=== PATIENT | male | born 1935 | race Caucasian/White ===

== ENCOUNTER 2019-09-01 09:44 | Observation (INO) | payer OTHER, MEDICARE ==
[~2019-09-01] VITALS: Ht 167.6 cm; Wt 87.5 kg
[~2019-09-01 09:44] MED LIST: AMLODIPINE BES2.5 MG PO; ATOR10 PO; Aspir 8181 MG PO; CARV3.125 PO; ERGO400 PO; HYDRA25 PO; ISODIN10 PO; NIFE30ER PO; PLAVIX75 MG PO; PRAZ1
[2019-09-01 10:07] LABS: BASOPHILS ABSOLUTE AUTO 0.05 K/mm3 (0.00-0.23); BASOPHILS PERCENT AUTO 1 % (0-2); EOSINOPHILS ABSOLUTE AUTO 0.34 K/mm3 (0.00-0.68); EOSINOPHILS PERCENT AUTO 5 % (0-6); Hematocrit 41.4 % (37.0-53.0); Hemoglobin 13.4 g/dL (13.5-17.5); IMMATURE GRAN ABSOLUTE AUTO 0.03 K/mm3 (0.00-0.10); IMMATURE GRAN PERCENT AUTO 0 % (0-1); LYMPHOCYTES ABSOLUTE AUTO 1.07 K/mm3 (0.84-5.20); LYMPHOCYTES PERCENT AUTO 15 % (21-46); MONOCYTES ABSOLUTE AUTO 0.67 K/mm3 (0.16-1.47); MONOCYTES PERCENT AUTO 10 % (4-13); Mean Corpuscular HGB 31.8 pg (26.0-34.0); Mean Corpuscular HGB Conc 32.4 g/dL (31.5-36.5); Mean Corpuscular Volume 98 fL (80-100); Mean Platelet Volume 10.2 fL (9.1-12.4); NEUTROPHILS ABSOLUTE AUTO 4.83 K/mm3 (1.96-9.15); NEUTROPHILS PERCENT AUTO 69 % (41-73); Platelet Count 149 K/mm3 (150-400); RDW Coefficient Variation 13.5 % (11.7-14.2); RDW Standard Deviation 48.3 fL (35.1-46.3); Red Blood Cell Count 4.21 M/mm3 (4.30-5.90); White Blood Cell Count 6.99 K/mm3 (4.00-11.30)
[2019-09-01 10:30] LABS: Bilirubin, Total 0.5 mg/dL (0.1-1.0); Bun/Creatinine Ratio 11.6 (12.0-20.0); Calcium, Blood 9.1 mg/dL (8.5-10.1); Globulin, Blood 3.1 g/dL (2.2-4.0); Potassium, Blood 4.2 mmol/L (3.5-5.5); Total Protein, Blood 6.1 g/dL (6.4-8.2); Troponin I 0.09 ng/mL (0.000-0.040)
--- NOTE | 2019-09-01 11:52 | NUR ---
Spoke with Dr Garibay and discussed case. Pt will need a placemaker placed and Pt is agreeable. Pt has reported that he may not want dialysis. Pt may benefit from conversation regarding goals of care and advanced care planning. Pt is A&O and is resting on gurney. Listened as Pt reports hope to be discharged from the hospital tomorow. Pt reports his is currently at [facility] and she will be discharge home with hospice tomorrow. Difficult to have continued conversations due to Pt's continued black outs. Pt reports his son Pool lives with him and his and will be home for to come home tomorrow. Pt reports Pool is supportive of Pt and 's needs. [employer] enters rooms and discusses plan including pacemaker placement. Pt is agreeable with plan. [employer] would like Pt to remain NPO for procedure. Pt continues with balck out symptoms. Pt requests for this RN to call son and update him. Instructed Pt this RN will F/U with hime after procedure. Pt is agreeable. Spoke with Pt's ED nurse and relayed cardiologists request for Pt to remain NPO. Called and spoke with Pt's son Pool. Updated Pool on plan. Pool reports understanding. Listened as Pool reports feeling overwhelmed due to Pt being in the hospital and his mom (Pt's ) coming home with hospice tomorrow. Fab Ballesteros concerns. Pool expresses appreciation of call. Instructed Pool to call with any questions or concerns. Pool requests to be contacted at [phone]. Alternate number is [phone]. Palliative Care will F/U with Pt after procedure to help determine Pt's goals and advanced care planning.
[2019-09-02 04:30] LABS: Anion Gap 8 mmol/L (6-16); Blood Urea Nitrogen 58 mg/dL (8-24); Bun/Creatinine Ratio 12.3 (12.0-20.0); CO2, Blood 19 mmol/L (21-32); Calcium, Blood 8.6 mg/dL (8.5-10.1); Chloride, Blood 115 mmol/L (98-108); Glomerular Filtration Rate 13 (60-); Glucose, Blood 79 mg/dL (70-99); Potassium, Blood 4.5 mmol/L (3.5-5.5); Sodium, Blood 142 mmol/L (136-145)
[2019-09-02 04:32] LABS: Vancomycin, Random 9.5 ug/mL
--- NOTE | 2019-09-02 06:27 | NUR ---
SHIFT SUMMARY PT RESTING IN ROOM COMFORTABLY AT THIS TIME. NO ACUTE CHANGES IN STATUS T/O NIGHT. PRE REPORTED SOME PAIN TO PACEMAKER SITE, PT WAS MEDICATED PER EMAR. RESP EVEN UNLABORED ON RA W/ SATS >92%. PT DENIED OTHER NEEDS T/O NIGHT. ABLE TO AMBULATE TO RR W/ SBA. PT DENIED OTHER NEEDS. CALL LIGHT IN REACH.
--- NOTE | 2019-09-02 09:08 | NUR ---
ASSUMED CARE AT 0700, REPORT FROM BRANDO FARIA. RESTING IN HIGH FOWLERS IN BED. SLING TO LEFT ARM AND DRESSING ON PACEMAKER SITE CLEAN DRY AND INTACT. [facility] TO ROOM FOR PACEMAKER INTERROGATION. A/A/0X4 IN NO DISTRESS. WILL CONTINUE TO MONITOR.
[2019-09-02] MEDS ORDERED: SENN187 PO (10:22)
[2019-09-02] MEDS ORDERED: CARV6.25 PO (10:22)
--- NOTE | 2019-09-02 11:42 | NUR ---
DISCHARGE INSTRUCTIONS GIVEN WITH CLEAR UNDERSTANDING. REVIEWED NEED TO WEAR SLING UNTIL THURSDAY PER ORDERS. PT STATES SLING STRAP WILL DISLODGE HIS VERTABAE BUT AGREES TO WEAR. FOLLOW UP APPOINTMENTS GIVEN TO PT. WOUND CARE GIVEN FOR PACEMAKER INSCISION. PACEMAKER POST OP INSTRUCTIONS GIVEN.
== END 2019-09-02 11:08 | disposition home or self-care (01) ==
LOC: ER 09:44 → PCU 09:45
PROVIDERS: Emergency Medicine; Hospitalist; ADMIT Internal Medicine
DX: I49.5 Sick sinus syndrome (principal); I12.0 Hypertensive chronic kidney disease with stage 5 chronic kidney disease or end stage renal disease; N18.5 Chronic kidney disease, stage 5; Z90.5 Acquired absence of kidney; I48.0 Paroxysmal atrial fibrillation; Z88.0 Allergy status to penicillin; Z88.1 Allergy status to other antibiotic agents; Z88.2 Allergy status to sulfonamides; Z91.040 Latex allergy status; Z91.018 Allergy to other foods; Z79.899 Other long term (current) drug therapy; Z79.02 Long term (current) use of antithrombotics/antiplatelets; Z85.528 Personal history of other malignant neoplasm of kidney; Z87.891 Personal history of nicotine dependence
CPT/HCPCS: 33208; 36415; 71045; 71046; 72040; 76937; 80048; 80053; 80202; 84484; 85025; 93005; 93010; 99152; 99153; 99285-25; A9270-GY; C1785; C1894; C1898; J0461; J0690; J1644; J2250; J3010; J3370; J7030; J7040

== ENCOUNTER 2020-02-02 07:18 | Day surgery (SDC) | payer OTHER, MEDICARE ==
[~2020-02-02] VITALS: Ht 170.2 cm; Wt 84.0 kg
[~2020-02-02 07:18] MED LIST changes: +CARV6.25 PO; +FOLI1 PO; +SENN187 PO; +SODBIC650 PO; +VITAMIN D31000 UNI1 PO
--- NOTE | 2020-02-02 10:36 | NUR ---
PT SON HERE NOW, PT DRESSED, IV DC'D INTACT, PERMACATH SITE STABLE, DIAYLSIS T REMOVE SUTURES, PT DC'D BY WC WITH SON DRIVING PT HOME. PT HAD NO SEDATION, VSS
== END 2020-02-02 15:45 | disposition home or self-care (01) ==
LOC: MHTC 07:18
DX: I12.0 Hypertensive chronic kidney disease with stage 5 chronic kidney disease or end stage renal disease (principal); N18.6 End stage renal disease; I71.4 Abdominal aortic aneurysm, without rupture; I48.91 Unspecified atrial fibrillation; Z90.5 Acquired absence of kidney; Z88.6 Allergy status to analgesic agent; Z88.2 Allergy status to sulfonamides; Z88.1 Allergy status to other antibiotic agents; Z88.8 Allergy status to other drugs, medicaments and biological substances; Z85.528 Personal history of other malignant neoplasm of kidney; Z79.899 Other long term (current) drug therapy
CPT/HCPCS: 36558; 77001; C1750; C1769; C1894; J1644; J1720; J2250; J3010; J7030; J7040

== ENCOUNTER 2020-02-04 15:08 | Inpatient (IN) | payer OTHER, MEDICARE ==
[~2020-02-04] VITALS: Ht 165.1 cm; Wt 81.5 kg
[2020-02-04 16:20] LABS: BASOPHILS ABSOLUTE AUTO 0.06 K/mm3 (0.00-0.23); BASOPHILS PERCENT AUTO 1 % (0-2); EOSINOPHILS ABSOLUTE AUTO 0.48 K/mm3 (0.00-0.68); EOSINOPHILS PERCENT AUTO 6 % (0-6); Hematocrit 36.1 % (37.0-53.0); Hemoglobin 11.3 g/dL (13.5-17.5); IMMATURE GRAN ABSOLUTE AUTO 0.09 K/mm3 (0.00-0.10); IMMATURE GRAN PERCENT AUTO 1 % (0-1); LYMPHOCYTES ABSOLUTE AUTO 1.25 K/mm3 (0.84-5.20); LYMPHOCYTES PERCENT AUTO 15 % (21-46); MONOCYTES ABSOLUTE AUTO 0.75 K/mm3 (0.16-1.47); MONOCYTES PERCENT AUTO 9 % (4-13); Mean Corpuscular HGB 32.5 pg (26.0-34.0); Mean Corpuscular HGB Conc 31.3 g/dL (31.5-36.5); Mean Corpuscular Volume 104 fL (80-100); Mean Platelet Volume 10.3 fL (9.1-12.4); NEUTROPHILS ABSOLUTE AUTO 5.96 K/mm3 (1.96-9.15); NEUTROPHILS PERCENT AUTO 69 % (41-73); Platelet Count 157 K/mm3 (150-400); RDW Coefficient Variation 14.9 % (11.7-14.2); RDW Standard Deviation 56.9 fL (35.1-46.3); Red Blood Cell Count 3.48 M/mm3 (4.30-5.90); White Blood Cell Count 8.59 K/mm3 (4.00-11.30)
[2020-02-04 16:31] LABS: Albumin, Blood 3.2 g/dL (3.4-5.0); Albumin/Globulin Ratio 0.9 (0.8-1.8); Bilirubin, Total 0.4 mg/dL (0.1-1.0); Bun/Creatinine Ratio 7.6 (12.0-20.0); Calcium, Blood 8.8 mg/dL (8.5-10.1); Creatinine, Blood 6.02 mg/dL (0.60-1.20); Globulin, Blood 3.4 g/dL (2.2-4.0); Potassium, Blood 4.9 mmol/L (3.5-5.5); Total Protein, Blood 6.6 g/dL (6.4-8.2)
--- NOTE | 2020-02-04 19:52 | NUR ---
PT ADMITTED TO ROOM 339 PER CART FROM ER; REPORT RECEIVED FROM BRANDO DEJESUS VIA ER; RIGHT UPPER CHEST PERMATCATH SITE OPEN TO AIR.
--- NOTE | 2020-02-05 03:50 | NUR ---
SHIFT SUMMARY: 84 Y/O MALE RESTED COMFORTABLY ALL SHIFT; PT AWAITING DIALYSIS THIS AM; PTS RIGHT UPPER CHEST PORTACATH SITE WELL APPROXIMATED AND INTACT (OPEN TO AIR) WITH BLACK STITCHES NOTED HOLDING CATHETER INTACT; DENIES PAIN OR NAUSEA; HAPPY AND COOPERATIVE; BED ALARM APPLIED, BED LOW POSITION WITH CALL LIGHT AT SIDE.
[2020-02-05 05:34] LABS: Hematocrit 30.3 % (37.0-53.0); Hemoglobin 9.6 g/dL (13.5-17.5); Mean Corpuscular HGB 32.3 pg (26.0-34.0); Mean Corpuscular HGB Conc 31.7 g/dL (31.5-36.5); Mean Corpuscular Volume 102 fL (80-100); Mean Platelet Volume 9.9 fL (9.1-12.4); Platelet Count 123 K/mm3 (150-400); RDW Coefficient Variation 14.7 % (11.7-14.2); RDW Standard Deviation 55.5 fL (35.1-46.3); Red Blood Cell Count 2.97 M/mm3 (4.30-5.90); White Blood Cell Count 6.33 K/mm3 (4.00-11.30)
[2020-02-05 06:02] LABS: Percent Saturation 44.6 % (20.0-50.0)
[2020-02-05 06:23] LABS: Albumin, Blood 2.6 g/dL (3.4-5.0); Anion Gap 7 mmol/L (6-16); Blood Urea Nitrogen 44 mg/dL (8-24); Bun/Creatinine Ratio 7.6 (12.0-20.0); CO2, Blood 21 mmol/L (21-32); Calcium, Blood 8.5 mg/dL (8.5-10.1); Chloride, Blood 114 mmol/L (98-108); Glomerular Filtration Rate 10 (60-); Glucose, Blood 78 mg/dL (70-99); Magnesium, Blood 2.3 mg/dL (1.6-2.4); Phosphorus, Blood 3.9 mg/dL (2.5-4.9); Potassium, Blood 4.7 mmol/L (3.5-5.5); Sodium, Blood 142 mmol/L (136-145)
--- NOTE | 2020-02-05 08:34 | NUR ---
PT USED BATHROOM CALL LIGHT IN REACH.
--- NOTE | 2020-02-05 16:44 | NUR ---
SHIFT SUMMARY PATIENT DENIES PAIN, NAUSEA, AND SHORTNESS OF BREATH. PATIENT HAD DIALYSIS THIS MORNING. PATIENT CONVERTED BRIEFLY INTO AFIB W/HR IN 90'S AFTER LUNCH AND THEN CONVERTED BACK. RENAL ULTRASOUND COMPLETED THIS AFTERNOON. PT EVAL TODAY, PATIENT UP SBA TO BR. PATIENT ANXIOUS TO DISCHARGE.
--- NOTE | 2020-02-06 04:25 | NUR ---
SHIFT SUMMARY: PT IS ALERT AND ORIENTED. PT IS CALM AND COOPERATIVE WITH CARE. PT CALLS APPROPRIATELY. PT IS A STANDBY ASSIST TO THE BATHROOM, UP ON SEVERAL OCCASIONS. PT SLEPT MUCH OF THE NIGHT WHEN NOT DISTURBED. PT DENIES PAIN, NAUSEA, VOMITING, AND SOB. NO ACUTE CHANGES OR COMPLICATIONS OVERNIGHT. WILL CONTINUE TO MONITOR.
[2020-02-06 05:10] LABS: Hematocrit 31.8 % (37.0-53.0); Hemoglobin 10.1 g/dL (13.5-17.5)
[2020-02-06 05:38] LABS: Albumin, Blood 2.6 g/dL (3.4-5.0); Anion Gap 6 mmol/L (6-16); Blood Urea Nitrogen 30 mg/dL (8-24); Bun/Creatinine Ratio 6.6 (12.0-20.0); CO2, Blood 26 mmol/L (21-32); Calcium, Blood 8.6 mg/dL (8.5-10.1); Chloride, Blood 109 mmol/L (98-108); Creatinine, Blood 4.55 mg/dL (0.60-1.20); Glomerular Filtration Rate 13 (60-); Glucose, Blood 88 mg/dL (70-99); Magnesium, Blood 2.1 mg/dL (1.6-2.4); Phosphorus, Blood 3.3 mg/dL (2.5-4.9); Potassium, Blood 4.3 mmol/L (3.5-5.5); Sodium, Blood 141 mmol/L (136-145)
[2020-02-06 11:07] LABS: HBSAG SCREEN Negative (Negative); HEP A AB, IGM Negative (Negative); HEP B CORE AB, IGM Negative (Negative); HEP C VIRUS AB <0.1 (0.0-0.9)
--- NOTE | 2020-02-06 12:43 | NUR ---
PT RETURNED FROM DIALYSIS AND CONVERTED TO AFIB IN 120-130'S. NOTIFIED AND STAT POTASSIUM/MAGNESIUM ORDERED.
[2020-02-06 13:11] LABS: Magnesium, Blood 2.1 mg/dL (1.6-2.4)
[2020-02-06 13:12] LABS: Potassium, Blood 3.3 mmol/L (3.5-5.5)
--- NOTE | 2020-02-06 13:21 | NUR ---
POTASSIUM 3.3/MAG 2.1 NOTIFIED. STAT LAB RECHECK AGAIN AT 1500. PT CONVERTING IN AND OUT AFIB PER OLEG [employer].
[2020-02-06 15:24] LABS: Potassium, Blood 3.5 mmol/L (3.5-5.5)
--- NOTE | 2020-02-06 18:27 | NUR ---
HR CONVERTED BACK TO NSR. ECHO ORDERED ALONG WITH TSH FOR AM. OTHERWISE NO ACUTE CHANGES T/O DAY. C/O "FATIGUE AFTER EARLIER HD. COOP WITH CARE
--- NOTE | 2020-02-07 03:52 | NUR ---
84 year old [place] with ESRD has recieved 2 days of hemodialysis has recieved daily dialysis x 2 days via rt upper chest wall perm cath inserted on 02/05/20. Tolerated well. PT on tele monitor with SR rate in 60s. HX of PAF on plavix to control per PT report & amlodipine. Calls approp. for assist to bathroom. PT reports disabled adult Son assists him at home. DC planning working on getting outpt dialysis set up. PT pleasant & cooperative.
[2020-02-07 05:09] LABS: Hematocrit 30.2 % (37.0-53.0); Hemoglobin 9.6 g/dL (13.5-17.5)
[2020-02-07 05:30] LABS: Albumin, Blood 2.6 g/dL (3.4-5.0); Anion Gap 8 mmol/L (6-16); Blood Urea Nitrogen 30 mg/dL (8-24); Bun/Creatinine Ratio 5.9 (12.0-20.0); CO2, Blood 29 mmol/L (21-32); Calcium, Blood 8.4 mg/dL (8.5-10.1); Chloride, Blood 105 mmol/L (98-108); Creatinine, Blood 5.08 mg/dL (0.60-1.20); Glomerular Filtration Rate 12 (60-); Glucose, Blood 90 mg/dL (70-99); Phosphorus, Blood 3.4 mg/dL (2.5-4.9); Sodium, Blood 142 mmol/L (136-145)
--- NOTE | 2020-02-07 18:00 | NUR ---
DC SUMMARY PT DC TO HOME WITH SON AT APPROX 1800 VIA WC. DC INSTRUCTION DISCUSSED WITH PT INCLUDING FOLLOW UP APPOINTMENT WITH PCP AND NEXT DIALYSIS APPT. NO NEW MEDS. PT HAD UNEVENTFUL DAY. DENIES PAIN, OTHER THAN MILD TENDERNESS AROUND PERMACATH. NO DIALYSIS TODAY. CT CHEST PERFORMED TODAY TO FOLLOW UP ON THORACIC AORTIC ANEURYSM/STENT. FOLLOWING UP WITH PCP FOR THIS. VITALS REVIEWED AND PT ATE DINNER BEFORE DC. PT VERBALIZES UNDERSTANDING OF DC INSTRUCTIONS. DECLINED ESCORT OUT.
== END 2020-02-07 18:16 | disposition home or self-care (01) | DRG 682 ==
LOC: ER 15:08 → MEDS 18:32
PROVIDERS: Internal Medicine Nephrology; Physician Assistant; ADMIT Internal Medicine
PROC: 5A1D70Z Performance of Urinary Filtration, Intermittent, Less than 6 Hours Per Day (ICD-10-PCS; principal; 2020-02-04)
DX: I12.0 Hypertensive chronic kidney disease with stage 5 chronic kidney disease or end stage renal disease (principal); N18.6 End stage renal disease; N25.81 Secondary hyperparathyroidism of renal origin; Z85.528 Personal history of other malignant neoplasm of kidney; Z90.5 Acquired absence of kidney; I48.0 Paroxysmal atrial fibrillation; D63.8 Anemia in other chronic diseases classified elsewhere; Z95.0 Presence of cardiac pacemaker; E87.70 Fluid overload, unspecified; E88.09 Other disorders of plasma-protein metabolism, not elsewhere classified; I49.5 Sick sinus syndrome; I71.2 Thoracic aortic aneurysm, without rupture; N28.1 Cyst of kidney, acquired; Z79.02 Long term (current) use of antithrombotics/antiplatelets; Z87.891 Personal history of nicotine dependence
CPT/HCPCS: 36415; 71046; 71250; 76770; 80053; 80069; 80074; 82607; 82728; 82746; 83540; 83550; 83735; 84132; 84443; 85014; 85018; 85025; 85027; 86317; 93005; 93010; 93306; 97116; 97162; 99284-25; A9270-GY; J0881; J1644

== ENCOUNTER 2020-02-09 14:31 | Emergency (ER) | payer OTHER, MEDICARE ==
[~2020-02-09] VITALS: Ht 165.1 cm; Wt 85.3 kg
--- NOTE | 2020-02-09 16:15 | NUR ---
DISCHARGE GONE OVER WITH PT, PT VERBALIZES UNDERSTANDING. SON NOTIFIED OF PT DISCHARGE. PT TO PRIVATE VEHICLE PER W/C
== END 2020-02-09 15:35 | disposition other institution (70) ==
LOC: ER 14:31
DX: T82.43XA Leakage of vascular dialysis catheter, initial encounter (principal); I48.91 Unspecified atrial fibrillation; N18.5 Chronic kidney disease, stage 5; Z79.02 Long term (current) use of antithrombotics/antiplatelets; Z88.0 Allergy status to penicillin; Z88.2 Allergy status to sulfonamides; Z91.09 Other allergy status, other than to drugs and biological substances; Z91.040 Latex allergy status; Z88.1 Allergy status to other antibiotic agents; Z91.018 Allergy to other foods; Z79.899 Other long term (current) drug therapy; Z87.891 Personal history of nicotine dependence
CPT/HCPCS: 36581; 36598; 99284; C1750; C1769; J1644; J7040

== ENCOUNTER 2020-05-02 14:44 | Day surgery (SDC) | payer OTHER ==
[~2020-05-02] VITALS: Ht 165.1 cm; Wt 83.0 kg
[2020-05-02] MEDS ORDERED: XARELTO2.5 M1 PO (18:59)
--- NOTE | 2020-05-02 19:28 | NUR ---
PATIENT UP TO BEDSIDE TO GET DRESS WITH STANDBY ASSIST. A&O. DENIES DISCOMFORT. LEFT ARM SLING PLACED. DRESSING TO LEFT ARM SITE DRY AND INTACT. DISCHARGE INSTRUCTIONS AND PRECAUTIONS GIVEN. IV SITE DCED WITH CATHETER INTACT. PATIENT TRANSFERRED TO WAITING RIDE VIA WHEEL CHAIR BY GERARD MICHAELS.
== END 2020-05-02 22:41 | disposition home or self-care (01) ==
LOC: MHTC 14:44
DX: N18.6 End stage renal disease (principal); C64.9 Malignant neoplasm of unspecified kidney, except renal pelvis; I48.91 Unspecified atrial fibrillation; Z88.0 Allergy status to penicillin; Z88.1 Allergy status to other antibiotic agents; Z88.2 Allergy status to sulfonamides; Z88.6 Allergy status to analgesic agent; Z88.8 Allergy status to other drugs, medicaments and biological substances; Z79.899 Other long term (current) drug therapy; Z91.018 Allergy to other foods; Z91.048 Other nonmedicinal substance allergy status; Z91.040 Latex allergy status; Z79.02 Long term (current) use of antithrombotics/antiplatelets
CPT/HCPCS: 64415; A9270; C1725; C1769; C1889; C1894; G2170; J1644; J2250; J3010; J7030; J7040

== ENCOUNTER 2020-06-06 13:24 | Day surgery (SDC) | payer OTHER, MEDICARE ==
[~2020-06-06] VITALS: Ht 165.1 cm; Wt 83.0 kg
[~2020-06-06 13:24] MED LIST changes: +XARELTO2.5 M1 PO
[2020-06-06] MEDS ORDERED: CYAN500 PO (14:10)
--- NOTE | 2020-06-06 19:01 | NUR ---
LRAD TR BAND DEFLATION STARTED. PT UP AT 90 DEGREES EATING AND DRINKING WITH NO DIFFICULTIES. WILL CONTINUE TO MONITOR SITES FOR BLEEDING. LEFT AC BANDING SITE WITH CLEAR TEGADERM INTACT. CALL LIGHT IN REACH.
--- NOTE | 2020-06-06 19:42 | NUR ---
PT VERBALIZED UNDERSTANDING OF D/C INSTRUCTIONS. PROVIDED IN FOLDER. TR BAND REMOVED FROM LEFT WRIST, RED CLOTH DOT DRESSING APPLIED. ARM BOARD ON LEFT ARM FOR SUPPORT. PT GETS DRESSED WITH NO ASSISTANCE. VSS. LEFT BRACHIAL SITE APPEARS TO BE WNL, SUTURES AND STERI STRIPS IN PLACE WITH CLEAR TEGADERM INTACT. SON ARRIVES TO DRIVE PT HOME, TAKEN OUT TO PRIVATE VEHICLE VIA PERSONAL W/C. NADN AT TIME OF DISCHARGE.
== END 2020-06-06 23:11 | disposition home or self-care (01) ==
LOC: MHTC 13:24
DX: I12.0 Hypertensive chronic kidney disease with stage 5 chronic kidney disease or end stage renal disease (principal); N18.6 End stage renal disease; I48.91 Unspecified atrial fibrillation; Z99.2 Dependence on renal dialysis; Z85.528 Personal history of other malignant neoplasm of kidney; Z95.0 Presence of cardiac pacemaker; Z90.5 Acquired absence of kidney; Z86.79 Personal history of other diseases of the circulatory system; Z79.01 Long term (current) use of anticoagulants; Z88.6 Allergy status to analgesic agent; Z88.2 Allergy status to sulfonamides; Z88.8 Allergy status to other drugs, medicaments and biological substances; Z91.048 Other nonmedicinal substance allergy status; Z88.0 Allergy status to penicillin; Z88.1 Allergy status to other antibiotic agents; Z91.040 Latex allergy status; Z91.018 Allergy to other foods
CPT/HCPCS: 36902; 37607; 76937; C1725; C1769; C1887; C1894; Q9967

== ENCOUNTER 2020-10-04 15:19 | Emergency (ER) | payer OTHER, MEDICARE ==
[~2020-10-04] VITALS: Ht 165.1 cm; Wt 79.4 kg
[~2020-10-04 15:19] MED LIST changes: +CYAN500 PO
[2020-10-04 16:46] LABS: BASOPHILS ABSOLUTE AUTO 0.08 K/mm3 (0.00-0.23); BASOPHILS PERCENT AUTO 1 % (0-2); EOSINOPHILS ABSOLUTE AUTO 0.46 K/mm3 (0.00-0.68); EOSINOPHILS PERCENT AUTO 7 % (0-6); Hematocrit 30.4 % (37.0-53.0); Hemoglobin 8.9 g/dL (13.5-17.5); IMMATURE GRAN ABSOLUTE AUTO 0.02 K/mm3 (0.00-0.10); IMMATURE GRAN PERCENT AUTO 0 % (0-1); LYMPHOCYTES ABSOLUTE AUTO 1.31 K/mm3 (0.84-5.20); LYMPHOCYTES PERCENT AUTO 19 % (21-46); MONOCYTES ABSOLUTE AUTO 0.83 K/mm3 (0.16-1.47); MONOCYTES PERCENT AUTO 12 % (4-13); Mean Corpuscular HGB 27.7 pg (26.0-34.0); Mean Corpuscular HGB Conc 29.3 g/dL (31.5-36.5); Mean Corpuscular Volume 95 fL (80-100); Mean Platelet Volume 9.8 fL (9.1-12.4); NEUTROPHILS PERCENT AUTO 61 % (41-73); NRBC ABSOLUTE 0.03 K/mm3 (0.00-0.02); NRBC Auto 0.4 /100 WBC (0.0-0.2); Platelet Count 222 K/mm3 (150-400); RDW Coefficient Variation 15.7 % (11.7-14.2); RDW Standard Deviation 53.9 fL (35.1-46.3); Red Blood Cell Count 3.21 M/mm3 (4.30-5.90)
[2020-10-04] MEDS ORDERED: ASPI81CH (16:53)
[2020-10-04] MEDS ORDERED: CETI5 (16:53)
[2020-10-04 17:04] LABS: Magnesium, Blood 2.9 mg/dL (1.6-2.4)
[2020-10-04 17:16] LABS: Albumin, Blood 3.4 g/dL (3.4-5.0); Albumin/Globulin Ratio 0.9 (0.8-1.8); Bilirubin, Total 0.4 mg/dL (0.1-1.0); Calcium, Blood 9.6 mg/dL (8.5-10.1); Creatinine, Blood 9.31 mg/dL (0.60-1.20); Globulin, Blood 3.9 g/dL (2.2-4.0); Potassium, Blood 4.3 mmol/L (3.5-5.5); Total Protein, Blood 7.3 g/dL (6.4-8.2)
[2020-10-04 17:33] LABS: Source, Urine Clean Catch
[2020-10-04 17:52] LABS: Appearance, Urine Hazy (Clear); Bilirubin, Urine Neg (Neg); Blood, Urine 3+ (Neg); Color, Urine Yellow (P-Yellow); Glucose Qualitative, Urine 2+ (Neg); Ketones, Urine Neg (Neg); Leukocyte Esterase, Urine 3+ (Neg); Nitrite, Urine Neg (Neg); Protein, Urine 3+ (Neg); Urobilinogen, Urine NORM (Normal)
[2020-10-04 18:03] LABS: Bacteria Few /hpf; Squamous Epithelial Cells Rare /hpf (Few); White Blood Cells, Urine 50-100 /hpf (0-5)
[2020-10-04] MEDS ORDERED: Keflex500 MG PO (18:11)
== END 2020-10-04 18:56 | disposition home or self-care (01) ==
LOC: ER 15:19
PROVIDERS: Emergency Medicine; Physician Assistant
DX: N39.0 Urinary tract infection, site not specified (principal); R56.9 Unspecified convulsions; N18.5 Chronic kidney disease, stage 5; I48.91 Unspecified atrial fibrillation; Z87.891 Personal history of nicotine dependence; Z88.2 Allergy status to sulfonamides; Z88.0 Allergy status to penicillin; Z88.8 Allergy status to other drugs, medicaments and biological substances; Z91.02 Food additives allergy status; Z91.09 Other allergy status, other than to drugs and biological substances; Z79.01 Long term (current) use of anticoagulants
CPT/HCPCS: 36415; 80053; 81001; 83735; 85025; 87077; 87086; 87186; 93005; 93010; 99283-25; A9270

== ENCOUNTER 2020-12-21 19:27 | Inpatient (IN) | payer OTHER ==
[~2020-12-21] VITALS: Ht 177.8 cm; Wt 95.2 kg
[~2020-12-21 19:27] MED LIST changes: +ASPI81CH; +CETI5 PO; +Keflex500 MG PO
[2020-12-21 21:19] LABS: BASOPHILS ABSOLUTE AUTO 0.04 K/mm3 (0.00-0.23); BASOPHILS PERCENT AUTO 1 % (0-2); EOSINOPHILS ABSOLUTE AUTO 0.28 K/mm3 (0.00-0.68); EOSINOPHILS PERCENT AUTO 3 % (0-6); Hematocrit 19.1 % (37.0-53.0); IMMATURE GRAN ABSOLUTE AUTO 0.06 K/mm3 (0.00-0.10); IMMATURE GRAN PERCENT AUTO 1 % (0-1); LYMPHOCYTES ABSOLUTE AUTO 0.77 K/mm3 (0.84-5.20); LYMPHOCYTES PERCENT AUTO 9 % (21-46); MONOCYTES ABSOLUTE AUTO 0.98 K/mm3 (0.16-1.47); MONOCYTES PERCENT AUTO 11 % (4-13); Mean Corpuscular HGB 24.5 pg (26.0-34.0); Mean Corpuscular HGB Conc 29.3 g/dL (31.5-36.5); Mean Corpuscular Volume 83 fL (80-100); Mean Platelet Volume 11.1 fL (9.1-12.4); NEUTROPHILS ABSOLUTE AUTO 6.45 K/mm3 (1.96-9.15); NEUTROPHILS PERCENT AUTO 75 % (41-73); Platelet Count 192 K/mm3 (150-400); RDW Coefficient Variation 18.6 % (11.7-14.2); RDW Standard Deviation 55.8 fL (35.1-46.3); Red Blood Cell Count 2.29 M/mm3 (4.30-5.90); White Blood Cell Count 8.58 K/mm3 (4.00-11.30)
[2020-12-21 21:20] LABS: Hemoglobin 5.6 g/dL (13.5-17.5)
[2020-12-21 21:32] LABS: Troponin I 0.202 ng/mL (0.000-0.040)
[2020-12-21 21:44] LABS: Albumin, Blood 2.9 g/dL (3.4-5.0); Albumin/Globulin Ratio 0.9 (0.8-1.8); Bilirubin, Total 0.3 mg/dL (0.1-1.0); Bun/Creatinine Ratio 9.4 (12.0-20.0); Calcium, Blood 8.7 mg/dL (8.5-10.1); Creatinine, Blood 12.7 mg/dL (0.60-1.20); Globulin, Blood 3.2 g/dL (2.2-4.0); Potassium, Blood 4.6 mmol/L (3.5-5.5); Total Protein, Blood 6.1 g/dL (6.4-8.2)
[2020-12-22 01:16] LABS: SARS-Cov-2 (COVID-19) PCR, MMC NEGATIVE (NEGATIVE)
[2020-12-22 08:08] LABS: BASOPHILS ABSOLUTE AUTO 0.03 K/mm3 (0.00-0.23); BASOPHILS PERCENT AUTO 0 % (0-2); EOSINOPHILS PERCENT AUTO 4 % (0-6); Hematocrit 22.8 % (37.0-53.0); Hemoglobin 6.9 g/dL (13.5-17.5); IMMATURE GRAN ABSOLUTE AUTO 0.08 K/mm3 (0.00-0.10); IMMATURE GRAN PERCENT AUTO 1 % (0-1); LYMPHOCYTES ABSOLUTE AUTO 0.98 K/mm3 (0.84-5.20); LYMPHOCYTES PERCENT AUTO 13 % (21-46); MONOCYTES PERCENT AUTO 12 % (4-13); Mean Corpuscular HGB 26.2 pg (26.0-34.0); Mean Corpuscular HGB Conc 30.3 g/dL (31.5-36.5); Mean Corpuscular Volume 87 fL (80-100); Mean Platelet Volume 11.2 fL (9.1-12.4); NEUTROPHILS ABSOLUTE AUTO 5.52 K/mm3 (1.96-9.15); NEUTROPHILS PERCENT AUTO 71 % (41-73); Platelet Count 175 K/mm3 (150-400); RDW Coefficient Variation 18.5 % (11.7-14.2); RDW Standard Deviation 57.3 fL (35.1-46.3); Red Blood Cell Count 2.63 M/mm3 (4.30-5.90); White Blood Cell Count 7.81 K/mm3 (4.00-11.30)
[2020-12-22 08:43] LABS: Troponin I 0.289 ng/mL (0.000-0.040)
[2020-12-22 08:51] LABS: Bun/Creatinine Ratio 9.4 (12.0-20.0); Creatinine, Blood 12.5 mg/dL (0.60-1.20); Potassium, Blood 4.5 mmol/L (3.5-5.5)
[2020-12-22 10:29] LABS: Hematocrit 21.9 % (37.0-53.0); Hemoglobin 6.8 g/dL (13.5-17.5)
[2020-12-22 10:54] LABS: Percent Saturation 95.5 % (20.0-50.0)
--- NOTE | 2020-12-22 19:36 | NUR ---
SHIFT SUMMARY PT A/O X2 AND EXPERIENCES PERIODS OF CONFUSION. WENT TO DIALYSIS TODAY AND RECEIVE 1 UNIT OF PRBC'S. FISTULA TO LEFT ARM WHICH HAD AN IV INSERTED TO IT. IV REMOVED AND ARM TENDER. NEW IV IN R HAND. GI CONSULT TO BE CALLED IF GUIAC COMES BACK POSITIVE. WILL REPORT TO ONCOMING RN.
--- NOTE | 2020-12-23 06:01 | NUR ---
CONTROL OFFICER SUMMARY PT A/O X2-3 AND IS CONFUSED. PT THOUGHT HE WAS GOING HOME IN THE MIDDLE OF THE NIGHT WITH HIS SON. VITALS ARE STABLE. ROOM AIR. INCONT/CONTINENT. ATTENDS IN PLACE. CALL LIGHT WITHIN REACH, BED ALARM ON. PT HAD NO BM'S OVERNIGHT. WILL CONTINUE TO MONITOR.
[2020-12-23 06:21] LABS: BASOPHILS ABSOLUTE AUTO 0.04 K/mm3 (0.00-0.23); BASOPHILS PERCENT AUTO 1 % (0-2); EOSINOPHILS ABSOLUTE AUTO 0.26 K/mm3 (0.00-0.68); EOSINOPHILS PERCENT AUTO 3 % (0-6); Hematocrit 25.6 % (37.0-53.0); Hemoglobin 8.2 g/dL (13.5-17.5); IMMATURE GRAN ABSOLUTE AUTO 0.06 K/mm3 (0.00-0.10); IMMATURE GRAN PERCENT AUTO 1 % (0-1); LYMPHOCYTES ABSOLUTE AUTO 0.97 K/mm3 (0.84-5.20); LYMPHOCYTES PERCENT AUTO 11 % (21-46); MONOCYTES ABSOLUTE AUTO 1.17 K/mm3 (0.16-1.47); MONOCYTES PERCENT AUTO 14 % (4-13); Mean Corpuscular HGB 26.5 pg (26.0-34.0); Mean Corpuscular Volume 83 fL (80-100); Mean Platelet Volume 9.8 fL (9.1-12.4); NEUTROPHILS ABSOLUTE AUTO 6.12 K/mm3 (1.96-9.15); NEUTROPHILS PERCENT AUTO 71 % (41-73); Platelet Count 169 K/mm3 (150-400); RDW Standard Deviation 53.1 fL (35.1-46.3); White Blood Cell Count 8.62 K/mm3 (4.00-11.30)
[2020-12-23 06:55] LABS: Magnesium, Blood 2.1 mg/dL (1.6-2.4); Troponin I 0.496 ng/mL (0.000-0.040)
[2020-12-23 07:04] LABS: Albumin, Blood 2.6 g/dL (3.4-5.0); Anion Gap 9 mmol/L (6-16); Blood Urea Nitrogen 73 mg/dL (8-24); Bun/Creatinine Ratio 8.4 (12.0-20.0); CO2, Blood 23 mmol/L (21-32); Calcium, Blood 8.3 mg/dL (8.5-10.1); Chloride, Blood 111 mmol/L (98-108); Creatinine, Blood 8.73 mg/dL (0.60-1.20); Glomerular Filtration Rate 6 (60-); Glucose, Blood 80 mg/dL (70-99); Phosphorus, Blood 5.5 mg/dL (2.5-4.9); Potassium, Blood 3.7 mmol/L (3.5-5.5); Sodium, Blood 143 mmol/L (136-145)
--- NOTE | 2020-12-23 18:22 | NUR ---
SHIFT SUMMARY PATIENT DENIES PAIN, NAUSEA, AND SHORTNESS OF BREATH. PATIENT REFUSED ALL MEDICATIONS TODAY. PATIENT IS PARANIOD ABOUT BEING IN HOSPITAL. DISCHARGE ORDERS PLACED, BUT FAMILY UNABLE TO CARE FOR PATIENT ANYMORE. INTERNAL COMMUNICATIONS MANAGER REFERRAL PLACED FOR [facility] PL[facility]. PATIENT REMOVED HIS IV, NEW ORDER FOR NO IV ACCESS.
--- NOTE | 2020-12-24 05:49 | NUR ---
SHOE STITCHER SUMMARY PT A/O X2. PT MENTIONS A LOT ABOUT SON AND ASKING WHEN HE IS GOING TO PICK HIM UP TO GO HOME. PT IS PLEASANTLY CONFUSED. DENIED PAIN. CONT/INCONT TO BLADDER. NO BOWEL MOVMENTS OVERNIGHT. PT IS ON BEDREST, PT IS W/C BOUND AT BASELINE. VITALS STABLE, CALL LIGHT WITHIN REACH, WILL CONTINUE TO MONITOR.
[2020-12-24 05:57] LABS: Hemoglobin 8.5 g/dL (13.5-17.5)
[2020-12-24 06:36] LABS: Magnesium, Blood 2.4 mg/dL (1.6-2.4)
[2020-12-24 06:45] LABS: Albumin, Blood 2.5 g/dL (3.4-5.0); Anion Gap 10 mmol/L (6-16); Blood Urea Nitrogen 84 mg/dL (8-24); Bun/Creatinine Ratio 8.6 (12.0-20.0); CO2, Blood 22 mmol/L (21-32); Calcium, Blood 9.1 mg/dL (8.5-10.1); Chloride, Blood 110 mmol/L (98-108); Creatinine, Blood 9.77 mg/dL (0.60-1.20); Glomerular Filtration Rate 5 (60-); Glucose, Blood 83 mg/dL (70-99); Phosphorus, Blood 6.2 mg/dL (2.5-4.9); Potassium, Blood 3.8 mmol/L (3.5-5.5); Sodium, Blood 142 mmol/L (136-145)
--- NOTE | 2020-12-24 14:54 | NUR ---
DISCHARGED HOME WITH SON. PATIENT REQUESTS THIS RN GO OVER D/C ORDERS WITH SON. TEACHBACK METHOD UTILIZED. ALL SON AND PATIENT QUESTIONS ANSWERED.
== END 2020-12-24 15:10 | disposition home or self-care (01) | DRG 280 ==
LOC: ER 19:27 → MEDS 19:28 → ER 19:28 → SURS 19:28 → MEDS 12-22 01:20 → SURS 12-22 16:49 → ENPENDDIS 12-23 18:11 → MEDS 12-24 09:54
PROVIDERS: Emergency Medicine; Internal Medicine; Internal Medicine Nephrology; ADMIT Hospitalist
PROC: 30233N1 Transfusion of Nonautologous Red Blood Cells into Peripheral Vein, Percutaneous Approach (ICD-10-PCS; 2020-12-21)
PROC: 5A1D70Z Performance of Urinary Filtration, Intermittent, Less than 6 Hours Per Day (ICD-10-PCS; principal; 2020-12-22)
DX: I13.2 Hypertensive heart and chronic kidney disease with heart failure and with stage 5 chronic kidney disease, or end stage renal disease (principal); N18.6 End stage renal disease; I21.A1 Myocardial infarction type 2; E87.2 Acidosis; Z99.2 Dependence on renal dialysis; Z20.822 Contact with and (suspected) exposure to COVID-19; D63.1 Anemia in chronic kidney disease; I50.9 Heart failure, unspecified; I48.0 Paroxysmal atrial fibrillation; I49.5 Sick sinus syndrome; Z88.0 Allergy status to penicillin; Z85.528 Personal history of other malignant neoplasm of kidney; Z95.0 Presence of cardiac pacemaker; Z90.5 Acquired absence of kidney; Z88.2 Allergy status to sulfonamides; Z88.8 Allergy status to other drugs, medicaments and biological substances; Z87.891 Personal history of nicotine dependence; Z79.82 Long term (current) use of aspirin; Z79.01 Long term (current) use of anticoagulants; Z79.899 Other long term (current) drug therapy; Z88.1 Allergy status to other antibiotic agents; Z91.040 Latex allergy status; Z91.011 Allergy to milk products; Z91.018 Allergy to other foods; Z91.048 Other nonmedicinal substance allergy status; Z90.49 Acquired absence of other specified parts of digestive tract; Z90.89 Acquired absence of other organs; Z98.890 Other specified postprocedural states; Z91.15 Patient's noncompliance with renal dialysis
CPT/HCPCS: 36415; 36430; 80048; 80053; 80069; 82607; 82728; 82746; 83540; 83550; 83735; 83880; 84484; 85014; 85018; 85025; 86850; 86900; 86901; 86920; 86923; 93005; 93010; 96374; 99285-25; A9270; C9113; G0257; G0378; J0881; P9016; U0004

== ENCOUNTER 2021-01-07 07:24 | Observation (INO) | payer OTHER ==
[~2021-01-07] VITALS: Ht 165.1 cm; Wt 81.7 kg
[2021-01-07 08:09] LABS: BASOPHILS ABSOLUTE AUTO 0.06 K/mm3 (0.00-0.23); BASOPHILS PERCENT AUTO 1 % (0-2); EOSINOPHILS ABSOLUTE AUTO 0.31 K/mm3 (0.00-0.68); EOSINOPHILS PERCENT AUTO 4 % (0-6); Hemoglobin 9.6 g/dL (13.5-17.5); IMMATURE GRAN ABSOLUTE AUTO 0.03 K/mm3 (0.00-0.10); IMMATURE GRAN PERCENT AUTO 0 % (0-1); LYMPHOCYTES PERCENT AUTO 13 % (21-46); MONOCYTES ABSOLUTE AUTO 0.87 K/mm3 (0.16-1.47); MONOCYTES PERCENT AUTO 11 % (4-13); Mean Corpuscular HGB 26.9 pg (26.0-34.0); Mean Corpuscular Volume 87 fL (80-100); Mean Platelet Volume 10.5 fL (9.1-12.4); NEUTROPHILS ABSOLUTE AUTO 5.52 K/mm3 (1.96-9.15); NEUTROPHILS PERCENT AUTO 71 % (41-73); Platelet Count 192 K/mm3 (150-400); RDW Coefficient Variation 20.3 % (11.7-14.2); RDW Standard Deviation 64.4 fL (35.1-46.3); Red Blood Cell Count 3.57 M/mm3 (4.30-5.90); White Blood Cell Count 7.79 K/mm3 (4.00-11.30)
[2021-01-07 08:16] LABS: Source, Urine Catheter
[2021-01-07 08:23] LABS: Appearance, Urine Cloudy (Clear); Bilirubin, Urine Neg (Neg); Blood, Urine 5+ (Neg); Color, Urine Yellow (P-Yellow); Glucose Qualitative, Urine 2+ (Neg); Ketones, Urine Neg (Neg); Leukocyte Esterase, Urine 3+ (Neg); Nitrite, Urine Neg (Neg); Protein, Urine 3+ (Neg); Urobilinogen, Urine NORM (Normal)
[2021-01-07 08:48] LABS: Albumin, Blood 3.4 g/dL (3.4-5.0); Albumin/Globulin Ratio 0.9 (0.8-1.8); Bilirubin, Total 0.4 mg/dL (0.1-1.0); Calcium, Blood 9.2 mg/dL (8.5-10.1); Globulin, Blood 3.7 g/dL (2.2-4.0); Potassium, Blood 4.5 mmol/L (3.5-5.5); Total Protein, Blood 7.1 g/dL (6.4-8.2)
[2021-01-07 08:50] LABS: Bun/Creatinine Ratio 7.2 (12.0-20.0)
[2021-01-07 08:59] LABS: White Blood Cells, Urine TNTC /hpf (0-5)
[2021-01-07 09:00] LABS: Squamous Epithelial Cells Rare /hpf (Few)
[2021-01-07 09:01] LABS: Bacteria Many /hpf; WBC Cast 0-2 /lpf (0)
--- NOTE | 2021-01-07 09:58 | NUR ---
pt attemtps to converse but unbale to track conversation. he was able to anser symptom questions if I went very slow. he dienies headaches, he is having more of his tightening and spasms was almost tearful when he reponded. He is truggling to void. no nausea not hungry. he wanders off and picks at things and worries about his wheel chair. Pt adamant he does not want xray. and becomes diatraught. his face is maxk like and muscles look tight. Called son to review his care he states his mental status and memory are much worse. He states advisl doew not releive pain. last time he had relif was in hospital when they gave narcotics. He states voiding is very difficult and minimal. review of hospice and admission to comfort only. and get control of his uti and symptoms and allow a natural progression of his life with support and comfort. Son was greatful and feels it is time. landcare officer notidied minimal and discolored. Review of hospitce and admission to comfort care so we can get his uti and symptomsn under control and then stransition to hospice and am
[2021-01-07 13:10] LABS: SARS-Cov-2 (COVID-19) PCR, MMC NEGATIVE (NEGATIVE)
--- NOTE | 2021-01-07 15:12 | NUR ---
patient to the floor at 1319, [facility], confused, reluctant to care, patient refusing antibiotics for a UTI, has refused dialysis for 2 weeks, palliative consult in, patient to be transferred to [facility] at 1600
--- NOTE | 2021-01-07 15:39 | NUR ---
DISCHARGE MEDICATIONS THIS RN CALLED AND TALKED WITH MD CHERYL AND ASKED FOR DISCHARGE MEDICATION ORDERS. CHERYL REPORTS PT TO BE DIS[facility] WITH NO MEDICATIONS AT THIS TIME.
--- NOTE | 2021-01-07 16:26 | NUR ---
1626 PATIENT TO [place] VIA AMBULANCE TRANSPORT. THIS RN NIKOLE CALLED TO GIVE REPORT TO [facility] X2 AND NO REPLY YET
--- NOTE | 2021-01-07 16:40 | NUR ---
REPORT TO LUIZA AT [place] 1107, PATIENT LEFT FLOOR AT [id number]
== END 2021-01-07 16:26 ==
LOC: ER 07:24 → MEDS 07:25 → ENPENDDIS 15:45 → MEDS 16:26
PROVIDERS: Emergency Medicine; ADMIT Hospitalist
DX: G92 Toxic encephalopathy (principal); N39.0 Urinary tract infection, site not specified; F03.90 Unspecified dementia, unspecified severity, without behavioral disturbance, psychotic disturbance, mood disturbance, and anxiety; N18.6 End stage renal disease; D63.1 Anemia in chronic kidney disease; I48.0 Paroxysmal atrial fibrillation; I49.5 Sick sinus syndrome; Z95.0 Presence of cardiac pacemaker; Z85.528 Personal history of other malignant neoplasm of kidney; Z51.5 Encounter for palliative care; Z99.2 Dependence on renal dialysis; Z91.15 Patient's noncompliance with renal dialysis; Z91.14 Patient's other noncompliance with medication regimen; Z90.5 Acquired absence of kidney; Z66 Do not resuscitate; Z20.822 Contact with and (suspected) exposure to COVID-19
CPT/HCPCS: 36415; 51701; 80053; 81001; 85025; J0696; U0004